=== PATIENT | male | born 1960 | race Caucasian/White ===

== ENCOUNTER 2020-12-16 11:56 | Outpatient (CLI) | payer MEDICARE ==
[2020-12-17 00:59] LABS: SARS-CoV-2 PCR by NAA Not Detected (NotDetected)
== END 2020-12-16 11:57 | disposition home or self-care (01) ==
LOC: CSHLAB 11:56
PROVIDERS: ATTEND Internal Medicine Gastroenterology
DX: Z20.822 Contact with and (suspected) exposure to COVID-19 (principal); C18.9 Malignant neoplasm of colon, unspecified
CPT/HCPCS: U0003; U0005

== ENCOUNTER 2021-02-14 16:48 | Emergency (ER) | payer OTHER, MEDICARE, MEDICAID ==
[2021-02-14] MEDS ORDERED: Ketorolac Tromethamine 30 MG/ML VIAL ONE (17:26)
== END 2021-02-14 18:29 | disposition home or self-care (01) ==
LOC: CSHERS 16:48
DX: M25.511 Pain in right shoulder (principal); I10 Essential (primary) hypertension; G47.00 Insomnia, unspecified; W01.0XXA Fall on same level from slipping, tripping and stumbling without subsequent striking against object, initial encounter; Y92.009 Unspecified place in unspecified non-institutional (private) residence as the place of occurrence of the external cause; Z85.9 Personal history of malignant neoplasm, unspecified
CPT/HCPCS: 96372; J1885